=== PATIENT | female | born 1960 | race Caucasian/White ===

== ENCOUNTER 2019-08-24 10:46 | Outpatient (CLI) | payer OTHER, SELFPAY ==
--- NOTE | ~2019-08-24 | MM_ITS ---
EXAMINATION: MM scrn madonna implant BI w [facility] HISTORY: Screening mammogram TECHNIQUE: Craniocaudal and mediolateral oblique 3-D tomosynthesis images with implant displacement a nd synthetic 2-D images were generated. Craniocaudal and mediolateral oblique views of the breasts wi thout implant displacement were obtained using full field digital mammography. CAD analysis was submi tted and interpreted. COMPARISON: 08/12/2018, 05/30/2017, 05/22/2016 bilateral digital screening mammogram examinations BREAST PARENCHYMAL COMPOSITION: The breasts are heterogeneously dense, which may obscure small masses . FINDINGS: Status post bilateral augmentation mammoplasty. Minimal benign calcification of the breast. There is no evidence of suspicious mass, calcification, or architectural distortion to suggest malig john in either breast. There has been no suspicious interval change. IMPRESSION: 1. No mammographic evidence of malignancy. 2. Recommend routine screening mammography in one year. BI-RADS Category 2: Benign finding(s). Reviewed, dictated and finalized at location A. AL PARTS ASSEMBLER
== END 2019-08-24 10:47 | disposition home or self-care (01) ==
PROVIDERS: PCP Family Medicine; Visit Provider Nurse Practitioner Family
DX: Z12.31 Encounter for screening mammogram for malignant neoplasm of breast (principal)
CPT/HCPCS: 77063; 77067

== ENCOUNTER → 2019-09-13 12:00 | Outpatient (CLI) | payer OTHER, SELFPAY ==
--- NOTE | ~2019-09-13 | XR_ITS ---
EXAMINATION: XR knee RT min 4V DATE: 09/13/2019 12:13 INDICATION: Right knee pain. TECHNIQUE: 4 views of right knee were obtained. COMPARISON: None. FINDINGS: Bone alignment is normal. No fracture. There is mild osteoarthritis of medial and patellofe moral compartments characterized by tiny marginal osteophytes. There is a small knee joint effusion. IMPRESSION: 1. Mild right knee osteoarthritis. 2. Small right knee joint effusion. Reviewed, dictated and finalized at location A. L ADJUSTER
== END ==
PROVIDERS: PCP Family Medicine; Visit Provider Nurse Practitioner
DX: M25.461 Effusion, right knee (principal); M17.11 Unilateral primary osteoarthritis, right knee
CPT/HCPCS: 73564

== ENCOUNTER 2020-05-03 11:22 | Outpatient (CLI) | payer OTHER, SELFPAY ==
[2020-05-03 14:09] LABS: Thyroid Stimulating Hormone 0.143 uIU/mL (0.465-4.680)
[2020-05-03 14:17] LABS: Free T4 Free Thyroxine 1.24 ng/mL (0.78-2.19)
== END 2020-05-03 11:23 | disposition home or self-care (01) ==
DX: C73 Malignant neoplasm of thyroid gland (principal)
CPT/HCPCS: 36415; 84439; 84443

== ENCOUNTER 2020-08-31 10:41 | Outpatient (CLI) | payer OTHER, SELFPAY ==
[2020-08-31 11:30] LABS: Cholesterol 220 mg/dL (0-200); HDL Direct 62 mg/dL; Triglycerides 46 mg/dL (<150)
[2020-08-31 11:40] LABS: LDL Cholesterol Direct 123 mg/dL
== END 2020-08-31 10:42 | disposition home or self-care (01) ==
LOC: ANHLAB 10:42
PROVIDERS: PCP Family Medicine; Visit Provider Nurse Practitioner Family
DX: E78.5 Hyperlipidemia, unspecified (principal)
CPT/HCPCS: 36415; 80061

== ENCOUNTER 2020-09-22 09:53 | Outpatient (CLI) | payer OTHER, SELFPAY ==
--- NOTE | ~2020-09-22 | DEXA_ITS ---
Bone Density Report Name: Page Del Valle Age: 60 Sex: Female Ethnicity: White Date of : 1960 Indication: postmenopausal; height loss; cancer; Referring Provider: Terri Hopkins Study: Bone densitometry was performed. Exam Date: September 22, 2020 Accession number: [id number] Bone Density: Region BMD T-score Z-score Classification AP Spine (L1-L4) 1.197 1.4 2.7 Normal Femoral Neck (Left) 0.746 -0.9 0.3 Normal Total Hip (Left) 0.926 -0.1 0.8 Normal Total Hip Bilateral Avg 0.933 -0.1 0.8 Normal Femoral Neck (Right) 0.776 -0.7 0.6 Normal Total Hip (Right) 0.939 0.0 0.9 Normal World Health Organization criteria for BMD impression classify patients as: Normal (T-score at or above -1.0), Osteopenia (T-score between -1.0 and -2.5), or Osteoporosis (T-score at or below -2.5). 10-year Fracture Risk: FRAX not reported because: All T-scores for Spine Total, Hip Total, Femoral Neck at or above -1.0 Previous Exams: Region Exam Age BMD T-score BMD Change BMD Change Date g/cm2 vs Baseline vs Previous AP Spine(L1-L4) 09/22/2020 60 1.197 1.4 0.126(11.8%)* 0.060(5.3%)* 05/30/2017 57 1.137 0.8 0.066(6.1%)* 0.066(6.1%)* 02/21/2015 54 1.071 0.2 Total Hip(Left) 09/22/2020 60 0.926 -0.1 0.020(2.2%) -0.004(-0.4%) 05/30/2017 57 0.930 -0.1 0.024(2.6%) 0.024(2.6%) 02/21/2015 54 0.906 -0.3 Total Hip(Right) 09/22/2020 60 0.939 0.0 0.031(3.4%)* -0.006(-0.7%) 05/30/2017 57 0.945 0.0 0.037(4.1%)* 0.037(4.1%)* 02/21/2015 54 0.908 -0.3 *Denotes significance at 95% confidence level, LSC for AP Spine = 0.022 g/cm2, LSC for Total Hip = 0.027 g/cm2 Clinical Information Provided by Patient: Has used the following medications: Vitamin D Has the following medical conditions: Cancer Patient maximum height was 70 Menopause Age: 53 Onset of menses at age 17 Number of children 2 Impression: The patient has normal bone mass. No significant bone loss was observed. Discussion: BONE DENSITY IS ABOVE THE MINIMUM DESIRABLE LEVEL AT ALL SKELETAL SITES TESTED. This patient?s bone mineral density is above the minimum desirable level (T-score -1.0 or better) at all sites measured. The patient should follow a healthful lifestyle (good nutrition with adequate calcium and vitamin D, and appropriate weight-bearing exercise). Follow-Up: Consider repeating this study in 5 years or sooner if there is some new clinical indic
--- NOTE | ~2020-09-22 | MM_ITS ---
EXAMINATION: MM scrn madonna implant BI [facility] HISTORY: Screening mammogram TECHNIQUE: Craniocaudal and mediolateral oblique 3-D tomosynthesis images with implant displacement a nd synthetic 2-D images were generated. Craniocaudal and mediolateral oblique views of the breasts wi thout implant displacement were obtained using full field digital mammography. CAD analysis was submi tted and interpreted. COMPARISON: 08/24/2019, 08/12/2018, 05/30/2017 bilateral implant digital screening mammogram examinatio ns BREAST PARENCHYMAL COMPOSITION: The breasts are heterogeneously dense, which may obscure small masses . FINDINGS: Status post bilateral augmentation mammoplasty. There is no evidence of suspicious mass, ca lcification, or architectural distortion to suggest malignancy in either breast. There has been no aguirre spicious interval change. IMPRESSION: 1. No mammographic evidence of malignancy. 2. Recommend routine screening mammography in one year. BI-RADS Category 1: Negative Reviewed, dictated and finalized at location A. RY HELPER
== END 2020-09-22 09:54 | disposition home or self-care (01) ==
LOC: ANHIMG 09:55
PROVIDERS: PCP Family Medicine; Visit Provider Nurse Practitioner Family
DX: Z12.31 Encounter for screening mammogram for malignant neoplasm of breast (principal); Z78.0 Asymptomatic menopausal state
CPT/HCPCS: 77063; 77067; 77080

== ENCOUNTER 2021-01-04 09:48 | Outpatient (CLI) | payer OTHER, SELFPAY ==
[2021-01-04 10:56] LABS: Thyroid Stimulating Hormone 0.255 uIU/mL (0.465-4.680)
[2021-01-04 11:12] LABS: Free T4 Free Thyroxine 1.75 ng/mL (0.78-2.19)
== END 2021-01-04 09:49 | disposition home or self-care (01) ==
PROVIDERS: PCP Family Medicine
DX: C73 Malignant neoplasm of thyroid gland (principal)
CPT/HCPCS: 36415; 84439; 84443

== ENCOUNTER 2021-10-30 07:57 | Outpatient (CLI) | payer OTHER, SELFPAY ==
--- NOTE | ~2021-10-30 | MM_ITS ---
EXAMINATION: MM scrn madonna implant BI [facility] HISTORY: Screening mammogram TECHNIQUE: Craniocaudal and mediolateral oblique 3-D tomosynthesis images with implant displacement a nd synthetic 2-D images were generated. Craniocaudal and mediolateral oblique views of the breasts wi thout implant displacement were obtained using full field digital mammography. CAD analysis was submi tted and interpreted. COMPARISON: 09/22/2020, 08/24/2019, 08/12/2018 bilateral implant screening mammogram examinations BREAST PARENCHYMAL COMPOSITION: The breasts are heterogeneously dense, which may obscure small masses . FINDINGS: Status post bilateral augmentation mammoplasty. On MLO implant displaced Tomosynthesis image 37/60 there is suggestion of a rounded approximately 2 c m partially obscured mass in the mid and lower central breast. Diagnostic right mammogram and right b reast ultrasound examination are recommended. Otherwise there is no evidence of suspicious mass, calcification, or architectural distortion to sugg est malignancy in either breast. There has been no other suspicious interval change. IMPRESSION: 1. Possible 2 cm right breast mass 2. Diagnostic right mammogram and right breast ultrasound examination are recommended BI-RADS Category 0: Incomplete: Needs additional imaging evaluation. Reviewed, dictated and finalized at location A. IMPRESSION: 1. Possible 2 cm right breast mass 2. Diagnostic right mammogram and right breast ultrasound examination are recom mended BI-RADS Category 0: Incomplete: Needs additional imaging evaluation.
[2021-10-30 08:50] LABS: Basophils Percent Auto 0.4 % (0.2-1.2); Eosinophils Absolute Auto 0.1 K/mm3 (0-0.3); Hematocrit 44.6 % (37.0-47.0); Hemoglobin 14.6 g/dL (12.0-15.0); Immature Granulocyte Absolute 0.01 K/mm3 (0.00-0.031); Immature Granulocyte Percent A 0.2 % (0-0.5); Lymphocytes Absolute Auto 1.57 K/mm3 (0.9-3.2); Lymphocytes Percent Auto 30.8 % (18.3-44.2); Mean Corpuscular HGB Conc 32.7 g/dl (32-36); Mean Corpuscular Volume 91.8 fl (80-100); Mean Platelet Volume 10.6 fl (7.4-10.4); Monocytes Absolute Auto 0.5 K/mm3 (0.1-0.6); Monocytes Percent Auto 8.8 % (2.6-8.5); Neutrophils Percent Auto 58.8 % (45.5-73.1); Platelet Count Result 164 k/mm3 (150-375); Red Blood Count 4.86 M/mm3 (4.2-5.4); Red Cell Distribution Width 12.5 % (11.5-14.5); White Blood Count 5.1 K/mm3 (4.5-10.0)
[2021-10-30 09:03] LABS: Alanine Aminotransferase 19 U/L (4-35); Albumin Level 4.3 g/dL (3.5-5.1); Alkaline Phosphatase 65 U/L (38-126); Anion Gap 4 mmol/L (8-16); Aspartate Amino Transferase 24 U/L (14-36); Bilirubin,Total 1.1 mg/dL (0.2-1.3); Blood Urea Nitrogen 19 mg/dL (7-17); Carbon Dioxide 29 mmol/L (22-30); Chloride 102 mmol/L (98-107); Cholesterol 256 mg/dL (0-200); Estimated Glomerular Filt Rate > 60; Glucose 113 mg/dL (65-110); HDL Direct 58 mg/dL; Potassium 3.9 mmol/L (3.4-5.0); Sodium 135 mmol/L (137-145); Triglycerides 76 mg/dL (<150)
[2021-10-30 09:15] LABS: LDL Cholesterol Direct 140 mg/dL
[2021-10-30 09:34] LABS: Thyroid Stimulating Hormone 0.321 uIU/mL (0.465-4.680)
[2021-10-30 09:52] LABS: Free T4 Free Thyroxine 1.59 ng/mL (0.78-2.19)
== END 2021-10-30 07:58 | disposition home or self-care (01) ==
PROVIDERS: PCP Family Medicine; Visit Provider Nurse Practitioner Family
DX: Z12.31 Encounter for screening mammogram for malignant neoplasm of breast (principal); R92.8 Other abnormal and inconclusive findings on diagnostic imaging of breast; Z13.220 Encounter for screening for lipoid disorders; Z79.899 Other long term (current) drug therapy; E03.9 Hypothyroidism, unspecified
CPT/HCPCS: 36415; 77063; 77067; 80053; 80061; 84439; 84443; 85025

== ENCOUNTER 2021-11-29 11:07 | Outpatient (CLI) | payer OTHER, SELFPAY ==
--- NOTE | ~2021-11-29 | MMUS_ITS ---
EXAMINATION: MM diag madonna implant RT w [facility], US breast RT limited HISTORY: Possible right breast mass on screening mammogram TECHNIQUE: Craniocaudal, mediolateral, and mediolateral oblique 3-D tomosynthesis images with implant displacement of the right breast were performed and synthetic 2-D images were generated. Mediolater al view of the right breast without implant displacement was obtained using full field digital mammog conchita. CAD analysis was submitted and interpreted. High resolution limited right breast ultrasound wa s performed. COMPARISON: 10/30/2021, 09/22/2020, 08/24/2019, 08/12/2018 BREAST PARENCHYMAL COMPOSITION: The breasts are heterogeneously dense, which may obscure small masses . FINDINGS: MAMMOGRAPHIC FINDINGS: There is a return to baseline fibroglandular appearance with spot compression of the right breast in the area questioned on screening mammogram. ULTRASOUND: There is no evidence of focal abnormal solid or cystic lesion in the vicinity of the mammographic fin ding in question. IMPRESSION: 1. No mammographic or sonographic evidence of malignancy. 2. Recommend routine screening mammography in one year. BI-RADS Category 1: Negative Reviewed, dictated and finalized at location A. IMPRESSION: 1. No mammographic or sonographic evidence of malignancy. 2. Recommend routine screening mammography in one year. BI-RADS Category 1: Negative
== END 2021-11-29 11:08 | disposition home or self-care (01) ==
LOC: ANHIMG 11:09
PROVIDERS: PCP Family Medicine; Visit Provider Nurse Practitioner Family
DX: N63.10 Unspecified lump in the right breast, unspecified quadrant (principal); R92.8 Other abnormal and inconclusive findings on diagnostic imaging of breast
CPT/HCPCS: 76642; 77061; 77065; G0279

== ENCOUNTER 2022-04-18 10:15 | Outpatient (CLI) | payer OTHER, SELFPAY ==
[2022-04-18 10:36] LABS: Basophils Percent Auto 0.3 % (0.2-1.2); Eosinophils Percent Auto 0.5 % (0-4.4); Hematocrit 46.1 % (37.0-47.0); Hemoglobin 15.3 g/dL (12.0-15.0); Immature Granulocyte Absolute 0.01 K/mm3 (0.00-0.031); Immature Granulocyte Percent A 0.2 % (0-0.5); Lymphocytes Absolute Auto 1.21 K/mm3 (0.9-3.2); Lymphocytes Percent Auto 20.3 % (18.3-44.2); Mean Corpuscular HGB Conc 33.2 g/dl (32-36); Mean Corpuscular Hemoglobin 30.7 pg (26-34); Mean Corpuscular Volume 92.4 fl (80-100); Mean Platelet Volume 10.6 fl (7.4-10.4); Monocytes Absolute Auto 0.4 K/mm3 (0.1-0.6); Monocytes Percent Auto 6.5 % (2.6-8.5); Neutrophils Absolute Auto 4.3 K/mm3 (1.3-6.7); Neutrophils Percent Auto 72.2 % (45.5-73.1); Platelet Count Result 188 k/mm3 (150-375); Red Blood Count 4.99 M/mm3 (4.2-5.4); Red Cell Distribution Width 12.8 % (11.5-14.5)
[2022-04-18 11:00] LABS: Alanine Aminotransferase 23 U/L (6-35); Albumin Level 4.5 g/dL (3.5-5.1); Alkaline Phosphatase 68 U/L (38-126); Anion Gap 10 mmol/L (8-16); Aspartate Amino Transferase 24 U/L (14-36); Bilirubin,Total 1.2 mg/dL (0.2-1.3); Blood Urea Nitrogen 17 mg/dL (7-17); Calcium 9.3 mg/dL (8.4-10.2); Carbon Dioxide 28 mmol/L (22-30); Chloride 100 mmol/L (98-107); Cholesterol 261 mg/dL (0-200); Estimated Glomerular Filt Rate > 60; Glucose 103 mg/dL (65-110); HDL Direct 66 mg/dL; Potassium 3.8 mmol/L (3.4-5.0); Sodium 138 mmol/L (137-145); Triglycerides 60 mg/dL (<150)
[2022-04-18 11:11] LABS: LDL Cholesterol Direct 137 mg/dL
[2022-04-18 11:29] LABS: Thyroid Stimulating Hormone < 0.015 uIU/mL (0.465-4.680)
[2022-04-18 12:05] LABS: Free T4 Free Thyroxine 1.94 ng/mL (0.78-2.19)
[2022-04-18 13:00] LABS: Hemoglobin A1C 5.7 % (<5.7)
== END 2022-04-18 10:16 | disposition home or self-care (01) ==
LOC: ANHLAB 10:19
PROVIDERS: PCP Family Medicine; Visit Provider Nurse Practitioner Family
DX: E78.5 Hyperlipidemia, unspecified (principal); E03.9 Hypothyroidism, unspecified; R73.01 Impaired fasting glucose
CPT/HCPCS: 36415; 80053; 80061; 83036; 84439; 84443; 85025

== ENCOUNTER 2022-06-05 10:03 | Outpatient (CLI) | payer OTHER, SELFPAY ==
--- NOTE | ~2022-06-05 | US_ITS ---
EXAMINATION: US thyroid DATE: 06/05/2022 11:09 INDICATION: History of malignant neoplasm of the thyroid. Status post thyroidectomy. TECHNIQUE: Multiple ultrasound images of the thyroid were obtained. COMPARISON: 07/11/2017. FINDINGS: No discrete thyroid tissue detected. No solid or cystic mass. No lymphadenopathy. IMPRESSION: No sonographic evidence of residual thyroid tissue mass, or lymphadenopathy. Reviewed, dictated and finalized at location K. CE RENTAL CLERK
[2022-06-05 10:51] LABS: Alanine Aminotransferase 20 U/L (6-35); Albumin Level 4.6 g/dL (3.5-5.1); Alkaline Phosphatase 72 U/L (38-126); Anion Gap 9 mmol/L (8-16); Aspartate Amino Transferase 21 U/L (14-36); Bilirubin,Total 1.2 mg/dL (0.2-1.3); Blood Urea Nitrogen 13 mg/dL (7-17); Calcium 9.2 mg/dL (8.4-10.2); Carbon Dioxide 26 mmol/L (22-30); Chloride 104 mmol/L (98-107); Estimated Glomerular Filt Rate > 60; Glucose 107 mg/dL (65-110); Potassium 4.2 mmol/L (3.4-5.0); Sodium 139 mmol/L (137-145)
[2022-06-05 11:07] LABS: Free T4 Free Thyroxine 1.85 ng/mL (0.78-2.19)
[2022-06-05 11:22] LABS: Thyroid Stimulating Hormone < 0.015 uIU/mL (0.465-4.680)
[2022-06-05 11:58] LABS: Folic Acid 11.5 ng/mL (2.76->20)
[2022-06-09 04:53] LABS: Triiodothyronine T3 Free 3.6 pg/mL (2.3-4.2)
[2022-06-10 03:43] LABS: Thyroglobulin 0.4 ng/mL (2.8-40.9); Thyroglobulin Antibodies <1 IU/mL (<=1)
== END 2022-06-05 10:04 | disposition home or self-care (01) ==
PROVIDERS: PCP Family Medicine; Visit Provider Internal Medicine Endocrinology, Diabetes & Metabolism
DX: C73 Malignant neoplasm of thyroid gland (principal); E89.0 Postprocedural hypothyroidism
CPT/HCPCS: 36415; 76536; 80053; 82607; 82746; 84432; 84439; 84443; 84481; 86800

== ENCOUNTER 2022-11-26 10:00 | Outpatient (RCR) | payer OTHER, SELFPAY ==
--- NOTE | 2022-10-25 14:20 | PTOPEVAL1 ---
Assessment and note entered by Belia Quach, PT, DPT Evaluation Information Assessment Status Evaluation Diagnosis neck and upper back pain Onset chronic Subjective Information Pt states she is really active. She states over the last few years she has noticed her neck and shoulders are starting to round forward and she has pain in her upper neck and shoulders. She also reports mild chronic low back pain after prolonged positioning. She has seen a chiropractor once a month for maintenance for most of her life. Reported Pain Level Pain Score 2: Self Report Assessment PT Clinical Summary Page presents to therapy today for her initial evaluation with a diagnosis of a muscle strain. Today she demonstrates minor decreases in cervical ROM in all directions. She demonstrates postural deviations with her sitting and standing posture, both with increased thoracic kyphosis with a strong forward head posture. 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 Skilled physical therapy services are indicated to improve pain, postural awareness, and body mechanics, and to promote unlimited mobility. Plan of Care Interventions Electrical Stimulation,Hot Pack/Cold Pack,Manual Therapy,Neuro Re-education,Patient/Caregiver Educati,Therapeutic Activities,Therapeutic Exercise PT Services Indicated Yes Treatment Frequency and 1x/wk for 5 wks Duration These treatments will address the objective and functional deficits as defined above. The patient will be advanced safely and appropriately in order for the patient to progress towards his/her prior level of function. Additional exercises will be introduced and as well as a comprehensive home exercise program upon discharge, if needed, ?to ensure carryover of functional gains achieved in the clinic. This treatment plan has been reviewed and agreement upon by the patient.
--- NOTE | 2022-11-26 10:55 | PTOPDC ---
Assessment and note entered by Belia Quach, PT, DPT Evaluation Information Assessment Status discharged Diagnosis neck and upper back pain Onset chronic Subjective Information Pt states things are going okay . She states some days are better than others. She states her pain is less when she does her workout videos less. Pt states her pain is the same intensity when she stressed her neck, she states she has been trying to avoid stressing positions. Pt reports ~50% improvement in overall symptoms. Reported Pain Level Pain Score 0,3: Self Report Assessment PT Clinical Summary Page presents to therapy today for her progress report following 5 visits of skilled therapy to treat her neck pain. She demonstrates improved posture and body awareness during exercise. She demonstrates improved active cervical ROM in all directions. She reports good compliance with her HEP and is progressing well towards her therapy goals. Her HEP was progressed and she plans to complete these on her own. She will be discharged from skilled therapy services at this time.
== END 2022-11-26 14:33 | disposition home or self-care (01) ==
LOC: ANHGOSHPT 10:00
PROVIDERS: PCP Family Medicine; Visit Provider Nurse Practitioner Family
DX: S46.919D Strain of unspecified muscle, fascia and tendon at shoulder and upper arm level, unspecified arm, subsequent encounter (principal)
CPT/HCPCS: 97110; 97112; 97140; 97161

== ENCOUNTER 2022-12-24 10:53 | Outpatient (CLI) | payer OTHER, SELFPAY ==
--- NOTE | ~2022-12-24 | MM_ITS ---
EXAMINATION: MM scrn madonna implant BI [facility] HISTORY: Screening mammogram TECHNIQUE: Craniocaudal and mediolateral oblique 3-D tomosynthesis images with implant displacement a nd synthetic 2-D images were generated. Craniocaudal and mediolateral oblique views of the breasts wi thout implant displacement were obtained using full field digital mammography. CAD analysis was submi tted and interpreted. COMPARISON: 11/29/2021 diagnostic right implant mammogram and limited right breast ultrasound examinat ion 10/30/2021, 09/22/2020, 08/24/2019 bilateral implant screening mammogram examinations BREAST PARENCHYMAL COMPOSITION: The breasts are extremely dense, which lowers the sensitivity of mamm ography. FINDINGS: Status post bilateral augmentation mammoplasty. There is no evidence of suspicious mass, ca lcification, or architectural distortion to suggest malignancy in either breast. There has been no aguirre spicious interval change. IMPRESSION: 1. No mammographic evidence of malignancy. 2. Recommend routine screening mammography in one year. BI-RADS Category 1: Negative Reviewed, dictated and finalized at location A.
--- NOTE | ~2022-12-24 | DEXA_ITS ---
Bone Density Report Name: KENZIE RAWLS Age: 62 Sex: Female Ethnicity: White Date of : 1960 Indication: postmenopausal; screening for osteoporosis; height loss; cancer; Referring Provider: ADAN LAINEZ Study: Bone densitometry was performed. Exam Date: December 24, 2022 Accession number: [id number] Bone Density: Region BMD T-score Z-score Classification AP Spine(L1-L4) 1.166 1.1 2.6 Normal Femoral Neck (Left) 0.739 -1.0 0.4 Normal Total Hip (Left) 0.934 -0.1 1.0 Normal Femoral Neck (Right) 0.786 -0.6 0.8 Normal Total Hip (Right) 0.924 -0.1 0.9 Normal Total Hip Mean 0.929 -0.1 1.0 Normal World Health Organization criteria for BMD impression classify patients as: Normal (T-score at or above -1.0), Osteopenia (T-score between -1.0 and -2.5), or Osteoporosis (T-score at or below -2.5). 10-year Fracture Risk: FRAX not reported because: All T-scores for Spine Total, Hip Total, Femoral Neck at or above -1.0 Previous Exams: Region Exam Age BMD T-score BMD Change BMD Change Date g/cm2 vs Baseline vs Previous AP Spine (L1-L4) 12/24/2022 62 1.166 1.1 0.095 (8.9%)* -0.031 (-2.6%) 09/22/2020 60 1.197 1.4 0.126 (11.8%)* 0.060 (5.3%)* 05/30/2017 57 1.137 0.8 0.066 (6.1%)* 0.066 (6.1%)* 02/21/2015 54 1.071 0.2 Total Hip(Left) 12/24/2022 62 0.934 -0.1 0.028 (3.1%)* 0.008 (0.9%) 09/22/2020 60 0.926 -0.1 0.020 (2.2%) -0.004 (-0.4%) 05/30/2017 57 0.930 -0.1 0.024 (2.6%) 0.024 (2.6%) 02/21/2015 54 0.906 -0.3 Total Hip(Right) 12/24/2022 62 0.924 -0.1 0.016 (1.8%) -0.015 (-1.6%) 09/22/2020 60 0.939 0.0 0.031 (3.4%)* -0.006 (-0.7%) 05/30/2017 57 0.945 0.0 0.037 (4.1%)* 0.037 (4.1%)* 02/21/2015 54 0.908 -0.3 *Denotes significance at 95% confidence level, LSC for AP Spine = 0.022 g/cm2, LSC for Total Hip = 0.027 g/cm2 Clinical Information Provided by Patient: Has used the following medications: Vitamin D, Calcium Has the following medical conditions: Cancer Patient maximum height was 70 Menopause Age: 53 Onset of menses at age 17 Number of children 2 Impression: The patient has normal bone mass. The BMD for the AP Spine (L1-L4) decreased, changing by -2.6% since the last DXA exam. Discussion: BONE DENSITY IS ABOVE THE MINIMUM DESIRABLE LEVEL AT ALL SKELETAL SITES TESTED. This patient?s bone mineral density is above the minimum desirable l
[2022-12-24 12:01] LABS: Basophils Percent Auto 0.4 % (0.2-1.2); Eosinophils Absolute Auto 0.1 K/mm3 (0-0.3); Hematocrit 46.5 % (37.0-47.0); Hemoglobin 15.5 g/dL (12.0-15.0); Immature Granulocyte Absolute 0.01 K/mm3 (0.00-0.031); Immature Granulocyte Percent A 0.2 % (0-0.5); Lymphocytes Absolute Auto 1.35 K/mm3 (0.9-3.2); Lymphocytes Percent Auto 27.2 % (18.3-44.2); Mean Corpuscular HGB Conc 33.3 g/dl (32-36); Mean Corpuscular Hemoglobin 30.2 pg (26-34); Mean Corpuscular Volume 90.6 fl (80-100); Mean Platelet Volume 10.4 fl (7.4-10.4); Monocytes Absolute Auto 0.4 K/mm3 (0.1-0.6); Monocytes Percent Auto 7.2 % (2.6-8.5); Neutrophils Absolute Auto 3.2 K/mm3 (1.3-6.7); Platelet Count Result 206 k/mm3 (150-375); Red Blood Count 5.13 M/mm3 (4.2-5.4); Red Cell Distribution Width 12.3 % (11.5-14.5)
[2022-12-24 12:13] LABS: Alanine Aminotransferase 26 U/L (6-35); Albumin Level 4.7 g/dL (3.5-5.1); Alkaline Phosphatase 71 U/L (38-126); Anion Gap 7 mmol/L (8-16); Aspartate Amino Transferase 23 U/L (14-36); Bilirubin,Total 1.2 mg/dL (0.2-1.3); Blood Urea Nitrogen 17 mg/dL (7-17); Calcium 9.2 mg/dL (8.4-10.2); Carbon Dioxide 30 mmol/L (22-30); Chloride 101 mmol/L (98-107); Cholesterol 234 mg/dL (0-200); Estimated Glomerular Filt Rate > 60; Glucose 102 mg/dL (65-110); HDL Direct 69 mg/dL; Sodium 138 mmol/L (137-145); Triglycerides 75 mg/dL (<150)
[2022-12-24 12:26] LABS: LDL Cholesterol Direct 132 mg/dL
[2022-12-24 12:31] LABS: Vitamin D 25 Hydroxy 66.7 ng/mL
[2022-12-24 12:42] LABS: Thyroid Stimulating Hormone < 0.015 uIU/mL (0.465-4.680)
== END 2022-12-24 10:54 | disposition home or self-care (01) ==
PROVIDERS: PCP Family Medicine; Referring Provider Internal Medicine Endocrinology, Diabetes & Metabolism; Visit Provider Nurse Practitioner Family
DX: Z12.31 Encounter for screening mammogram for malignant neoplasm of breast (principal); Z78.0 Asymptomatic menopausal state; E78.5 Hyperlipidemia, unspecified; E55.9 Vitamin D deficiency, unspecified; E89.0 Postprocedural hypothyroidism; E21.0 Primary hyperparathyroidism
CPT/HCPCS: 36415; 77063; 77067; 77080; 80053; 80061; 82306; 84443; 85025

== ENCOUNTER 2023-10-01 11:55 | Outpatient (CLI) | payer OTHER, SELFPAY ==
--- NOTE | ~2023-10-01 | XR_ITS ---
XR sinus min 3V DATE: 10/01/2023 12:06 INDICATION: Shortness of breath, congestion TECHNIQUE: yumiko Kinney, lateral, submental vertical views COMPARISON: None FINDINGS: The paranasal sinuses and mastoid air cells are normally developed and aerated. The adenoids are unremarkable. No prevertebral soft tissue swelling. Normal epiglottis. IMPRESSION: No significant abnormality of the paranasal sinuses Reviewed, dictated and finalized at location B.
--- NOTE | ~2023-10-01 | XR_ITS ---
Clinical Indication: Shortness of breath PA and lateral views of the chest: Comparison: None Findings: The lungs are clear, without evidence of focal consolidation or pleural effusion. Cardiome diastinal silhouette is within normal limits. Bones and soft tissues are unremarkable. Impression: Normal chest. Reviewed, dictated and finalized at [facility]. Impression: Normal chest.
== END 2023-10-01 11:56 ==
PROVIDERS: PCP Family Medicine; Visit Provider Nurse Practitioner Family
DX: R06.02 Shortness of breath (principal); R09.82 Postnasal drip
CPT/HCPCS: 70220; 71046

== ENCOUNTER 2023-10-15 10:40 | Outpatient (CLI) | payer OTHER, SELFPAY ==
[2023-10-15 11:48] LABS: Basophils Percent Auto 0.4 % (0.2-1.2); Eosinophils Absolute Auto 0.1 K/mm3 (0-0.3); Eosinophils Percent Auto 1.3 % (0-4.4); Hematocrit 45.9 % (37.0-47.0); Hemoglobin 14.9 g/dL (12.0-15.0); Immature Granulocyte Absolute 0.02 K/mm3 (0.00-0.031); Immature Granulocyte Percent A 0.4 % (0-0.5); Lymphocytes Absolute Auto 1.38 K/mm3 (0.9-3.2); Lymphocytes Percent Auto 29.4 % (18.3-44.2); Mean Corpuscular HGB Conc 32.5 g/dl (32-36); Mean Corpuscular Hemoglobin 29.8 pg (26-34); Mean Corpuscular Volume 91.8 fl (80-100); Mean Platelet Volume 11.4 fl (7.4-10.4); Monocytes Absolute Auto 0.4 K/mm3 (0.1-0.6); Monocytes Percent Auto 8.9 % (2.6-8.5); Neutrophils Absolute Auto 2.8 K/mm3 (1.3-6.7); Neutrophils Percent Auto 59.6 % (45.5-73.1); Platelet Count Result 200 k/mm3 (150-375); White Blood Count 4.7 K/mm3 (4.5-10.0)
[2023-10-15 11:59] LABS: Alanine Aminotransferase 21 U/L (6-35); Albumin Level 4.5 g/dL (3.5-5.1); Alkaline Phosphatase 74 U/L (38-126); Anion Gap 3 mmol/L (4-12); Aspartate Amino Transferase 23 U/L (14-36); Bilirubin,Total 1.2 mg/dL (0.2-1.3); Blood Urea Nitrogen 14 mg/dL (7-17); Calcium 9.5 mg/dL (8.4-10.2); Carbon Dioxide 33 mmol/L (22-30); Chloride 101 mmol/L (98-107); Cholesterol 239 mg/dL (0-200); Estimated Glomerular Filt Rate > 60; Glucose 93 mg/dL (65-110); HDL Direct 59 mg/dL; Potassium 3.9 mmol/L (3.4-5.0); Sodium 137 mmol/L (137-145); Triglycerides 68 mg/dL (<150)
[2023-10-15 12:10] LABS: LDL Cholesterol Direct 144 mg/dL
[2023-10-15 12:21] LABS: Free T4 Free Thyroxine 2.34 ng/mL (0.78-2.19)
[2023-10-15 12:26] LABS: Thyroid Stimulating Hormone < 0.015 uIU/mL (0.465-4.680)
[2023-10-18 09:16] LABS: Triiodothyronine T3 Free 4.3 pg/mL (2.3-4.2)
[2023-10-18 10:15] LABS: Vitamin D 1,25 (OH)2 Total 27 pg/mL (18-72); Vitamin D2 1,25 (OH)2 <8 pg/mL; Vitamin D3 1,25 (OH)2 27 pg/mL
== END 2023-10-15 10:41 | disposition home or self-care (01) ==
LOC: ANHLAB 10:42
PROVIDERS: PCP Family Medicine; Visit Provider Nurse Practitioner Family
DX: E78.5 Hyperlipidemia, unspecified (principal); I10 Essential (primary) hypertension; E03.9 Hypothyroidism, unspecified; E55.9 Vitamin D deficiency, unspecified; Z00.00 Encounter for general adult medical examination without abnormal findings
CPT/HCPCS: 36415; 80053; 80061; 82607; 82652; 84439; 84443; 84481; 85025

== ENCOUNTER 2023-10-28 09:49 | Outpatient (CLI) | payer OTHER, SELFPAY ==
--- NOTE | ~2023-10-28 | US_ITS ---
Ultrasound of the Abdominal Aorta INDICATION: Family history ischemic heart disease TECHNIQUE: Grayscale, color Doppler, and pulsed Doppler images of the aorta and common iliac arteries were obtained. COMPARISON: None. FINDINGS: Maximum vascular dimensions are as follows: Proximal aorta: 2.3 cm Mid aorta: 2.0 cm Distal aorta: 2.1 cm Right common iliac artery: 1.5 cm Left common iliac artery: 1.7 cm There is no evidence of abdominal aortic aneurysm. IMPRESSION: No abdominal aortic aneurysm. Reviewed, dictated and finalized at location M.
== END 2023-10-28 09:50 ==
PROVIDERS: PCP Family Medicine; Visit Provider Family Medicine
DX: Z13.6 Encounter for screening for cardiovascular disorders (principal); Z82.49 Family history of ischemic heart disease and other diseases of the circulatory system
CPT/HCPCS: 76775

== ENCOUNTER 2024-05-06 14:44 | Outpatient (CLI) | payer OTHER, SELFPAY ==
--- NOTE | ~2024-05-06 | MM_ITS ---
EXAMINATION: MM scrn madonna implant BI [facility] HISTORY: Screening mammogram TECHNIQUE: Craniocaudal and mediolateral oblique 3-D tomosynthesis images with implant displacement a nd synthetic 2-D images were generated. Craniocaudal and mediolateral oblique views of the breasts wi thout implant displacement were obtained using full field digital mammography. CAD analysis was submi tted and interpreted. COMPARISON: Comparison to multiple prior studies sequentially, with oldest reviewed study dated 08/12. BREAST PARENCHYMAL COMPOSITION: Dense: The breasts are heterogeneously dense, which may obscure small masses FINDINGS: There is no evidence of suspicious mass, calcification, or architectural distortion to sugg est malignancy in either breast. There has been no suspicious interval change. IMPRESSION: 1. No mammographic evidence of malignancy. 2. Recommend routine screening mammography in one year. BI-RADS Category 1: Negative Reviewed, dictated and finalized at location B.
== END 2024-05-06 14:45 | disposition home or self-care (01) ==
LOC: ANHIMG 14:45
PROVIDERS: PCP Family Medicine; Visit Provider Nurse Practitioner Family
DX: Z12.31 Encounter for screening mammogram for malignant neoplasm of breast (principal)
CPT/HCPCS: 77063; 77067

== ENCOUNTER 2024-11-12 10:48 | Outpatient (CLI) | payer OTHER, SELFPAY ==
[2024-11-12 11:15] LABS: Basophils Percent Auto 0.5 % (0.2-1.2); Eosinophils Percent Auto 0.5 % (0-4.4); Hematocrit 42.7 % (37.0-47.0); Hemoglobin 13.9 g/dL (12.0-15.0); Immature Granulocyte Absolute 0.02 K/mm3 (0.00-0.031); Immature Granulocyte Percent A 0.3 % (0-0.5); Lymphocytes Absolute Auto 1.67 K/mm3 (0.9-3.2); Lymphocytes Percent Auto 26.7 % (18.3-44.2); Mean Corpuscular HGB Conc 32.6 g/dl (32-36); Mean Corpuscular Hemoglobin 29.3 pg (26-34); Mean Corpuscular Volume 89.9 fl (80-100); Mean Platelet Volume 10.1 fl (7.4-10.4); Monocytes Absolute Auto 0.5 K/mm3 (0.1-0.6); Monocytes Percent Auto 7.2 % (2.6-8.5); Neutrophils Absolute Auto 4.1 K/mm3 (1.3-6.7); Neutrophils Percent Auto 64.8 % (45.5-73.1); Platelet Count Result 257 k/mm3 (150-375); Red Blood Count 4.75 M/mm3 (4.2-5.4); Red Cell Distribution Width 12.2 % (11.5-14.5); White Blood Count 6.3 K/mm3 (4.5-10.0)
[2024-11-12 12:01] LABS: Free T4 Free Thyroxine 2.18 ng/dL (0.78-2.19); Vitamin D 25 Hydroxy 47.5 ng/mL
[2024-11-12 12:14] LABS: Alanine Aminotransferase 20 U/L (6-35); Albumin Level 4.3 g/dL (3.5-5.1); Alkaline Phosphatase 85 U/L (38-126); Anion Gap 5 mmol/L (4-12); Aspartate Amino Transferase 24 U/L (14-36); Bilirubin,Total 0.8 mg/dL (0.2-1.3); Blood Urea Nitrogen 15 mg/dL (7-17); Calcium 9.2 mg/dL (8.4-10.2); Carbon Dioxide 29 mmol/L (22-30); Chloride 104 mmol/L (98-107); Cholesterol 261 mg/dL (0-200); Estimated Glomerular Filt Rate > 60; Glucose 101 mg/dL (65-110); HDL Direct 57 mg/dL; Potassium 4.3 mmol/L (3.4-5.0); Sodium 138 mmol/L (137-145); Triglycerides 57 mg/dL (<150)
[2024-11-12 12:24] LABS: Hemoglobin A1C 5.7 % (<5.7)
[2024-11-12 12:25] LABS: LDL Cholesterol Direct 153 mg/dL
[2024-11-12 12:48] LABS: Thyroid Stimulating Hormone < 0.015 uIU/mL (0.465-4.680); Total Triiodothyronine (T3) 1.27 NG/ML (0.97-1.69)
--- OUTSIDE RECORDS SUMMARY | 2024-11-13 12:06 | XMS_ITS | Clinical Summary ---
Author Organization [facility] Address [address] [place] [address] Care Team Providers Care Cell Installer Name Role Phone Carmen Guy NP Unavailable Severiano Anderson MD Unavailable Jaylyn Wadr VENEER PATCHER Primary Care Provider [phone] Allergies Active Allergy Reactions Criticality Noted Date Comments Animal Dander Other (See comments) Low 04/21/2012 Was tested for it - but patient states has cats at home with no symptoms / pt states has been getting more seasonal allergies instead No Known Allergies Other (See comments) Low Reaction: Medications zolpidem (AMBIEN) 10 mg tabletIndicatio ns:Sleep-Onset Insomnia Take 1 tablet (10 mg total) by mouth nightly 1 8 Active ibuprofen (ADVIL LIQUI-GEL) 200 mg tab/cap Active multivitamin tabletIndicatio ns:Vitamin Deficiency Prevention Active fluconazole (DIFLUCAN) 150 mg tablet 8 Active lansoprazole (PREVACID) 15 mg capsule Take 1 capsule (15 mg total) by mouth daily. 30 capsule 11 8 Active Additional Information Patient not taking.Reported on 03/31/2023 omega-3 fatty acids (LOVAZA) 1 gram capsule Take 2 capsules (2 g total) by mouth Active glucosamine-cho ndroitin (glucosamine-ch ondroitin) 500-400 mg capsule Take 1 capsule by mouth Active acetaminophen (TYLENOL) 500 mg tablet Take by mouth Active cholecalciferol (cholecalcifero l) 400 unit capsule Active amoxicillin-cla vulanate (AUGMENTIN) 875-125 mg per tablet 0 9 Active loratadine (CLARITIN) 10 mg tablet 0 9 Active predniSONE (DELTASONE) 20 mg tablet 0 9 Active ALPRAZolam (XANAX) 0.25 mg tablet Take 1 tablet (0.25 mg total) by mouth as needed for anxiety Active fluticasone propionate (FLONASE) 50 mcg/actuation nasal spray Administer 1 spray into each nostril daily Active tetrahydrozolin e HCl/zinc sulf (EYE DROPS ALLERGY RELIEF OPHT) Administer into affected eye(s) daily Active SENNOSIDES ORAL Take by mouth daily Active vitamin E 400 unit capsule Take 1 capsule (400 Units total) by mouth daily Active ascorbic acid (ascorbic acid with yury hips) 500 mg tablet,chewable daily Acti ve cyanocobalamin (Vitamin B-12) 1,000 mcg tabletIndicatio ns:Prevention of Vitamin B12 Deficiency Take 1 tablet (1,000 mcg total) by mouth daily Active levothyroxine (SYNTHROID) 125 mcg tabletIndicatio ns:Thyroid cancer (HCC) Take 1 tablet (125 mcg total) by mouth vibration technician before breakfast 90 tablet 3 4 12/30/19 25 Active Active Problems Problem Noted Date Diagnosed Date Lung nodule 11/04/2023 Assessment & Plan (11/04/2023 8:37 PM CDT): Discussed options to follow up with CT chest in 6 months If concern for papillary thyroid cancer mets , will scheduled WBS for evaluation pending biochemical testing Patient agrees Post-surgical hypothyroidism 03/31/2023 Assessment & Plan (05/24/2024 1:27 PM EDITORIAL DIRECTOR): Continue current levothyroxine dose. Will check thyroid function test and adjust levothyroxine dose accordingly. TSH goal suppressed as tolerated Assessment & Plan (11/04/2023 8:28 PM CDT): Continue current levothyroxine dose. Will check thyroid function test and adjust levothyroxine dose accordingly. TSH goal suppressed as tolerated Assessment & Plan (03/31/2023 3:43 PM CDT): Continue current levothyroxine dose. Will check thyroid function test and adjust levothyroxine dose accordingly. TSH goal suppressed as tolerated pending follow up Thyroid cancer 12/19/2017 Cancer Staging:Pathologic stage from 12/03/2017: pT1a, pN1a, Age at diagnosis: >= 55 years - Signed by Gage Arita MD on 12/19/2017 Papillary thyroid carcinoma 12/03/2017 Assessment & Plan (05/24/2024 1:28 PM EDITORIAL DIRECTOR): Thyroid function test with a TSH goal suppressed as tolerated Biochemical evaluation with thyroid tumor markers. Follow up neck ultrasound LILY Follow up CT chest unremarkable and less concern for metastasis Assessment & Plan (11/04/2023 8:29 PM CDT): Thyroid function test with a TSH goal suppressed as tolerated Biochemical evaluation with thyroid tumor markers. Follow up neck ultrasound fin [address] chest given previous mediastinal uptake on TBS and small lung nodule follow up If above are in acceptable range, will plan follow-up on yearly basis, if concern for disease ---> obtain TBS here Assessment & Plan (03/31/2023 3:42 PM CDT): Will plan follow-up with thyroid function test with a TSH goal suppressed as tolerated Biochemical evaluation with thyroid tumor markers. We will also obtain neck ultrasound for evaluation of the neck. Obtain CT chest given previous mediastinal uptake on TBS If above are in acceptable range, will plan follow-up on yearly basis Thyroid nodule 08/26/2017 Hyperparathyroidism 08/25/2017 Other screening mammogram 09/04/2012 Chronic insomnia 04/21/2012 Plantar fasciitis 04/21/2012 Overview (11/09/2018): Overview: right arch/ foot Screening for cervical cancer 04/21/2012 Overview (11/09/2018): Overview: 04/2011 PAP was ascus with positive HPV Had Colpo 06/2011 = mild squamous dysplasia (LYLY 1) Screening for osteoporosis 04/21/2012 Overview (11/09/2018): Overview: 10/05/12 BMD = normal Stress at home 04/21/2012 Overview (11/09/2018): Overview: out of town for work a lot, Teenage son is challenging Surgical History Surgery Date Site/Laterality Comments SD UNLISTED PROCEDURE BREAST Breast Surgery - (Added by TW Conv) THYROID SURGERY 12/03/2017 Medical History Medical History Date Comments Allergy status to unspecifie d drugs, medicaments and biological substances status History of seasonal allergie s - (Added by TW Conv) Family History Medical History Relation Name Comments Heart disease Brother Breast cancer Maternal Grandmother Breast cancer Mother Family history of malignant neoplasm of breast - (Added by TW Conv) Heart disease Mother Family history of cardiac disorder - (Added by TW Conv) Relation Name Status Comments Brother Maternal Grandmother Mother Social History Tobacco Use Types Packs/Day Years Used Date Smoking Tobacco: Never Smokeless Tobacco: Never Tobacco Cessation:Counseling Given: Not Answered Alcohol Use Standard Drinks/Week Comments Yes 0 (1 standard drink = 0.6 oz pur e alcohol) Occasionally Comments No Sex and Gender Information Value Date Recorded Sex Assigned at Not on file Legal Sex Female 2:59 PM EDITORIAL DIRECTOR Gender Identity Not on file Sexual Orientation Not on file Obstetrics History Last Filed Vital Signs Vital Sign Reading Time Taken Comments Blood Pressure 142/83 05/24/2024 10:43 AM EDITORIAL DIRECTOR Pulse 67 05/24/2024 10:43 AM EDITORIAL DIRECTOR Temperature 36.7 C (98.1 F) 05/24/2024 10:43 AM EDITORIAL DIRECTOR Respiratory Rate 16 05/24/2024 10:43 AM EDITORIAL DIRECTOR Oxygen Saturation 99% 12/04/2017 7:33 AM CDT Inhaled Oxygen Concentration - - Weight 67.3 kg (148 lb 6.4 oz) 05/24/2024 10:43 AM EDITORIAL DIRECTOR Height 175.3 cm (5' 9 ) 05/24/2024 10:43 AM EDITORIAL DIRECTOR Body Mass Index 21.91 05/24/2024 10:43 AM EDITORIAL DIRECTOR Plan of Treatment Health Maintenance Due Date Last Done Comments Breast Cancer Screening-Mammogram 1960 Cervical Cancer Screening 1960 Colon Cancer Screening-Colonoscopy 1960 Depression Screening 1960 Hepatitis C Screening 1961 DTaP/Tdap/Td Vaccine (1 - Tdap) 1972 Hepatitis B Screening 1979 Regular Well Visit/Exam 18-64 1979 Zoster Vaccine (1 of 2) 2011 Influenza Vaccine (#1) 2024 8, 04/24/2017, 04/15/2016, Additional history exists Pneumococcal vaccine <65 Aged Out No longer eligible based on patient's age to complete this topic Insurance [facility] CHOICE PLUS [place] [id number] [facility] [place] [id number] [facility] CHOICE PLUS [facility] CHOICE PLUS Care Teams Cell Installer Relationship Specialty Start Date End Date Jaylyn Ward NP [address] [place] [address] PCP - General Nurse Practitioner 04/07/24 Carmen Guy NP Registered Nurse Radiation Oncology 12/23/17 Severiano Anderson MD [address] [facility] DEPT OTOLARYNGOLOGY, [address] [address] Surgical Oncologist Otolaryngology 12/23/17
--- OUTSIDE RECORDS SUMMARY | 2024-11-13 12:06 | XMS_ITS | Clinical Summary ---
Author Organization [facility] Address [address] [place] [address] Phone Care Team Providers Care Wheel Presser Name Role Phone Unavailable Primary Care Provider Unavailabl e Allergies No known active allergies Medications levothyroxine 125 mcg tablet Take 125 mcg by mouth daily in the morning. Active zolpidem (AMBIEN) 10 mg tablet Take 10 mg by mouth nightly as needed for Insomnia. Active OTHER MVI, D3, omega 3-6-9,Airbor ne, glucosamine/ chondroitin Active citalopram (CeleXA) 10 mg tablet Take 10 mg by mouth daily. Active Active Problems No known active problems Encounters Date Type Department Care Team Description 10/12/2024 External Device Data ST[facility] ABSTRACTION Provider, Abstract 09/29/2024 External Device Data [facility] ABSTRACTION Provider, Abstract 09/20/2024 External Device Data [facility] ABSTRACTION Provider, Abstract 09/18/2024 External Device Data [facility] ABSTRACTION Provider, Abstract 09/17/2024 External Device Data [facility] ABSTRACTION Provider, Abstract 09/14/2024 External Device Data ST[facility] ABSTRACTION Provider, Abstract 09/02/2024 Results Follow-Up [facility] [address] [facility] [address] [place] [id number] Birdie Andrea, COLONOSCOPY REPORT 09/01/2024 External Device Data STL ABSTRACTION Provider, Abstract 08/31/2024 External Device Data ST[facility] ABSTRACTION Provider, Abstract 08/31/2024 External Device Data STL ABSTRACTION Provider, Abstract 08/26/2024 11:30 AM INVESTIGATIVE SHOPPER - 08/26/2024 12:00 PM INVESTIGATIVE SHOPPER Surgery [facility] GI Lab [facility] [address] [place] [address] Birdie Andrea DO COLONOSCOPY 08/26/2024 11:11 AM INVESTIGATIVE SHOPPER Anesthesia Event [facility] [address] [place] [address] Ck Colón MD 08/26/2024 10:34 AM INVESTIGATIVE SHOPPER - 08/26/2024 12:13 PM INVESTIGATIVE SHOPPER Hospital Encounter [facility] [address] [place] [place] [address] Birdie Andrea DO History of colonic polyps Discharge Disposition: Home or Self Care from Last 3 Months Family History Medical History Relation Name Comments Colon Cancer Neg Hx Social History Tobacco Use Types Packs/Day Years Used Date Smoking Tobacco: Never Smokeless Tobacco: Never Alcohol Use Standard Drinks/Week Comments Yes 1 (1 standard drink = 0.6 oz pur e alcohol) Feeling Safe Answer Date Recorded Are you in a relationship wi th someone who hurts you emotionally and/or physically? No 08/26/2024 Comments No Sex and Gender Information Value Date Recorded Sex Assigned at Not on file Legal Sex Female 10:40 AM INVESTIGATIVE SHOPPER Gender Identity Not on file Sexual Orientation Not on file Last Filed Vital Signs Vital Sign Reading Time Taken Comments Blood Pressure 101/63 08/26/2024 11:53 AM INVESTIGATIVE SHOPPER Pulse 83 08/26/2024 11:53 AM INVESTIGATIVE SHOPPER Temperature 36.4 C (97.6 F) 08/26/2024 11:33 AM INVESTIGATIVE SHOPPER Respiratory Rate 16 08/26/2024 11:53 AM INVESTIGATIVE SHOPPER Oxygen Saturation 98% 08/26/2024 11:53 AM INVESTIGATIVE SHOPPER Inhaled Oxygen Concentration - - Weight 68.3 kg (150 lb 9.6 oz) 08/26/2024 10:48 AM INVESTIGATIVE SHOPPER Height 175.3 cm (5' 9 ) 08/26/2024 10:48 AM INVESTIGATIVE SHOPPER Body Mass Index 22.24 08/26/2024 10:48 AM INVESTIGATIVE SHOPPER Plan of Treatment Health Maintenance Due Date Last Done Comments DTAP/TDAP/TD VACCINES (1 - Tdap) 1980 HPV/Cotest (21-29) 1982 CERVICAL CANCER SCREENING 1991 HPV/Cotest (30-65) 1991 PAP SMEAR 1991 FIT-DNA Q 3 years 2006 FIT/FOBT Q 1 year 2006 Flex Sig/CT Colonography Q 5 years 2006 ZOSTER VACCINE (1 of 2) 2011 BREAST CANCER SCREENING 10/08/2013 10/08/2012, 09/17 INFLUENZA VACCINE (#1) 2024 COLORECTAL SCREENING 08/26/2031 08/26/2024, 08/26/2024, 07/27/2021, Additional history exists Colorectal Cancer Screening 08/26/2031 RSV VACCINE (60+ or ) (1 - 1-dose 75+ series) 2036 Procedures Procedure Name Priority Date/Time Associated Diagnosis Comments COLONOSCOPY REPORT 08/26/2024 11 :31 AM INVESTIGATIVE SHOPPER [place] COLONOSCOPY FLX DX W/COLLJ SPEC WHEN PFRMD 08/26/2024 11:30 AM INVESTIGATIVE SHOPPER History of colonic polyps Screen for colon cancer Case Notes 2 day prep per Emre from Last 3 Months Results * COLONOSCOPY REPORT (08/26/2024 11:31 AM INVESTIGATIVE SHOPPER) Narrative Procedure Note Birdie Andrea DO - 08/26/2024 11:31 AM CST [facility] Endoscopy Patient Name: Page Del Valle Procedure Date: 08/26/2024 Date of : 1960 Attending MD: Birdie Andrea MD, Procedure: Colonoscopy Indications: High risk colon cancer surveillance: Personal history of non-advanced adenoma, Last colonoscopy: July 2021 Providers: Birdie Andrea MD Referring MD: Terri Hopkins Medicines: Monitored Anesthesia Care Complications: No immediate complications. Procedure: Informed consent was obtained for the procedure, including moderate sedation after risks were discussed. Based on the pre-procedure assessment, including review of the patient's medical history, medications, allergies, and review of systems, the patient was deemed to be an appropriate candidate for sedation. A timeout was performed. Continuous ECG monitoring, pulse oximetry, blood pressure monitoring, and direct observation were performed. The Colonoscope was introduced through the anus and advanced to the cecum, identified by appendiceal orifice and ileocecal valve. The colonoscopy was performed without difficulty. The patient tolerated the procedure well. The quality of the bowel preparation was good. Anatomical landmarks were photographed. Estimated Blood Loss: Estimated blood loss was minimal. Findings: The perianal examination was normal. Diverticula were found in the sigmoid colon and descending colon. Retroflexion in the right colon was performed. Non-bleeding hemorrhoids were found. Impression: - Diverticulosis in the sigmoid colon and in the descending colon. - Non-bleeding hemorrhoids. - No specimens collected. Recommendation: - Repeat colonoscopy in 7 years for surveillance. - High fiber diet. Birdie Andrea MD 08/26/2024 11:31:17 AM This report has been signed electronically. Number of Addenda: [address]; [place] [address] Birdie Andrea DO GI PROCEDURE ORDERABLES Fin al Result from Last 3 Months Insurance Advance Directives For more information, please contact: [phone] * Full Code (Latest Code Status on File) Date Activated Date Inactivated Comments 08/26/2024 10:50 AM 08/26/2024 2:23 PM * Full Code Date Activated Date Inactivated Comments 07/27/2021 10:03 AM 07/27/2021 1:52 PM
--- OUTSIDE RECORDS SUMMARY | 2024-11-13 12:06 | XMS_ITS | Referral Summary ---
Author Organization [facility] Address [address] [place] [address] Care Team Providers Care Manager City Name Role Phone Carmen Guy NP Unavailable Severiano Anderson MD Unavailable Jaylyn Ward DOCTOR OF AUDIOLOGY Primary Care Provider [phone] Allergies Active Allergy Reactions Criticality Noted Date [...] 1 tablet (125 mcg total) by mouth territory sales manager before breakfast 90 tablet 3 4 12/30/19 [...] 03/31/2023 Assessment & Plan (05/24/2024 1:27 PM MANAGER PROTEIN): Continue current levothyroxine dose. Will check thyroid [...] 12/03/2017 Assessment & Plan (05/24/2024 1:28 PM MANAGER PROTEIN): Thyroid function test with a TSH goal [...] work a lot, Teenage son is challenging Social History Tobacco Use Types Packs/Day Years Used Date Smoking Tobacco: Never Smokeless Tobacco: Never Tobacco Cessation:Counseling Given: Not Answered Alcohol Use Standard Drinks/Week Comments Yes 0 (1 standard drink = 0.6 oz pur e alcohol) Occasionally Comments No Sex and Gender Information Value Date Recorded Sex Assigned at Not on file Legal Sex Female 2:59 PM MANAGER PROTEIN Gender Identity Not on file Sexual Orientation Not on file Last Filed Vital Signs Vital Sign Reading Time Taken Comments Blood Pressure 142/83 05/24/2024 10:43 AM MANAGER PROTEIN Pulse 67 05/24/2024 10:43 AM MANAGER PROTEIN Temperature 36.7 C (98.1 F) 05/24/2024 10:43 AM MANAGER PROTEIN Respiratory Rate 16 05/24/2024 10:43 AM MANAGER PROTEIN Oxygen Saturation 99% 12/04/2017 7:33 AM CDT Inhaled Oxygen Concentration - - Weight 67.3 kg (148 lb 6.4 oz) 05/24/2024 10:43 AM MANAGER PROTEIN Height 175.3 cm (5' 9 ) 05/24/2024 10:43 AM MANAGER PROTEIN Body Mass Index 21.91 05/24/2024 10:43 AM MANAGER PROTEIN Plan of Treatment Not on file Insurance [facility] CHOICE PLUS [facility] H[facility]/PPO Address: [facility] [address] [place] [address] [facility] H[facility]/PPO Address: [address] [address] [place] [address] [facility] CHOICE PLUS [facility] H[facility]/PPO Address: [address] [address] [place] [address] [facility] CHOICE PLUS [facility] HMO/PPO Address: [address] [address] [place] [address] Care Teams Manager City Relationship Specialty Start Date End Date Jaylyn Ward NP [address] [place] [address] PCP - General Nurse Practitioner 04/07/24 Carmen Guy NP Registered Nurse Radiation Oncology 12/23/17 Severiano Anderson MD [address] [facility] DEPT OTOLARYNGOLOGY, [address] [address] Surgical Oncologist Otolaryngology 12/23/17
--- OUTSIDE RECORDS SUMMARY | 2024-11-13 12:06 | XMS_ITS ---
Author Organization [facility] Address [address] [place] [address] [address] [place] [address] Care Team Providers Care African Studies Professor Name Role Phone Esther Griffin PA-C Unavailable [phone] Allergies No Known Allergies REASON FOR VISIT TPI Medications Medication SIG (Take, Route, Frequency, Duration) Notes Start Date End Date Status ALPRAZolam 0.25 MG TAKE 1/2 (ONE-HALF) TABLET BY MOUTH ONCE DAILY NEEDED FOR ANXIETY Oral for 30 F418,Unavailabl e Active Citalopram Hydrobromide 10 MG TAKE 1 TABLET BY MOUTH ONCE DAILY Oral for 30 Active Zolpidem Tartrate 10 MG TAKE 1 TABLET BY MOUTH EVERY DAY AT BEDTIME NEEDED FOR INSOMNIA Oral for 30 G4700,Unavailab le Active Problems Problem Type SNOMED Code ICD Code Onset Dates Problem Status W/U Status Risk Notes Problem Cervicalgia (31163474) Cervicalgia (M54.2) Active confirmed Problem Cervical spondylosis (048255459) Cervical spondylosis (M47.812) Active confirmed Vital Signs Blood pressure systolic 118 mm Hg 06/01/20 24 Blood pressure diastolic 73 mm Hg 024 Heart Rate 80 /min 06/01/2024 Height 5ft 9in in 06/01/2024 Weight 148 lbs 06/01/2024 BMI 21.85 kg/m2 06/01/2024 Height-cm 175.26 cm 06/01/2024 Weight-kg 67.13 kg 06/01/2024 Encounters Encounter Location Date Provider Diagnosis [facility] [address] [place] [address] 06/01/2024 Esther Griffin Cervicalgia M54.2 ; Pelvic obliquity M95.5 and Cervical spondylosis M47.812 Assessments Encounter Date Diagnosis (ICD Code) Assessment Notes Treatment Notes Treatment Clinical Notes Section Notes 06/01/2024 Cervicalgia (ICD-10 - M54.2) TPI schedule xrays 06/01/2024 Pelvic obliquity (ICD-10 - M95.5) 06/01/2024 Cervical spondylosis (ICD-10 - M47.812) 06/01/2024 Other Learning About How to Have a Healthy Back material was published Plan Of Treatment Treatment Notes Assessment Notes Cervicalgia TPI schedule xrays Other Learning About How t o Have a Healthy Back material was published Next Appt Details Follow Up: 4 Weeks, Reason: Progress Notes * Page RAWLS MDOB:[birth year] (64 yo F)Acc No.[id number]:06/01/2024 Patient: Page EVERETT Appointment Provider: IVÁN Booth :1960 A ge:64 Y S ex:Female Supervising Provider:Leandro Walls MD Date:06/01/2024 Address:[address] [place], [place] [id number] Subjective: * Chief Complaints: * T PI * HPI: * Established Patient: Established Patient Questionnaire: 1 . Are you currently taking a Blood Thinner Medication? N o 2 . Do you have an allergy to I.V. Contrast or Shellfish? N o 3 . List any changes to medical history. (eg; Falls, Test, Scans, Blood Work, and Hospitalizations) N one 4 . Have you been exposed to anyone with COVID in the last 2 weeks? N o 5 . Have you been exposed to anyone with the FLU in the last 72 hours? N o 6 . What is your Pain Level today? (1-10, Scroll and select one) 9 7 . Where is your pain located? H ead,Neck,Left Shoulder,Right Shoulder,Low Back 8 . After your last visit, what Percentage of improvement did you experience? 6 0 9 . Are you doing Physical Therapy, Chiropractic, or Massage Therapy? Y es 1 0. Are you doing an at home Exercise Program? Y es 1 1. What activities or positions increase your Pain? (Scroll to select one or multiple) S itting,Standing,Exercise 1 2. What activities or positions decrease your Pain? (Scroll to select one or multiple) L radhika down,Walking 1 3. How would you describe your Pain? (Scroll to select one or multiple) A kamila 1 4. Are you having difficulty sleeping? Y es 1 5. When was the last time you had your blood drawn? (Please enter your best estimate) 1 6. When was your last Mammogram? (Please put N/A if you are male, for Females please put the best Estimate or Never. ) 1 1 7. When was your last Colonoscopy? (Please put the best Estimate or Never. ) 3 Years ago 1 8. Do you need any refills on your medications today? N o 1 9. Please list ALL changes to Medications or Allergies? C italopran 2 0. Are you Diabetic? N o 2 1. Do you suffer from Constipation? N o Procedure Consent I nformed Consent obtained on 08/01/2023 * Pain Management:: Page Rawls is here today for trigger point injections. This is my first time meeting her in clinic. She has history of chronic cervical pain, spondylosis and scoliosis. Her last visit here was May 2023. She states she had RFA procedure left C8, T1, T2. She does see chiropractor with benefit. She does HEP/stretching and uses bolster on a regular basis. Right leg a short 2 mm. She will schedule to update x-rays. Today she rates VAS 9/10. She says her pain is located head neck shoulders and low back. She reports 60% benefit from last visit. She does chiropractor and HEP. She does have some difficulty with sleep. She is on no narcotic medications. * ROS: G eneral/Constitutional: Denies Change in appetite, Chills, Fatigue, Fever or Lightheadedness. ENT: Denies Tinnitus or Dysphagia. Ophthalmologic: Denies Blurred vision or change in vision. Neurological: denies gait abnormality, balance difficulty, dizziness, or loss of strength Psychological: denies depressed mood or change in mood Skin: denies skin rash . * Medical History: * Surgical History: * Hospitalization/Major Diagno stic Procedure: * Social History: * Established Patient: S moking D o you smoke? N o * Medications: T akingCitalopram Hydrobromide 10 MG Tablet TAKE 1 TABLET BY MOUTH ONCE DAILY Oral Zolpidem Tartrate 10 MG Tablet TAKE 1 TABLET BY MOUTH EVERY DAY AT BEDTIME NEEDED FOR INSOMNIA Oral , Notes to Pharmacist: G4700,UnavailableALPRAZolam 0.25 MG Tablet TAKE 1/2 (ONE-HALF) TABLET BY MOUTH ONCE DAILY NEEDED FOR ANXIETY Oral , Notes to Pharmacist: F418,UnavailableMedication List reviewed and reconciled with the patientTaking Citalopram Hydrobromide 10 MG Tablet TAKE 1 TABLET BY MOUTH ONCE DAILY Oral Taking Zolpidem Tartrate 10 MG Tablet TAKE 1 TABLET BY MOUTH EVERY DAY AT BEDTIME NEEDED FOR INSOMNIA Oral , Notes to Pharmacist: G4700,UnavailableTaking ALPRAZolam 0.25 MG Tablet TAKE 1/2 (ONE-HALF) TABLET BY MOUTH ONCE DAILY NEEDED FOR ANXIETY Oral , Notes to Pharmacist: F418,UnavailableMedication List reviewed and reconciled with the patient * Allergies: N .K.D.A.no[Allergies Verified] Objective: * Vitals: H t: 5ft 9in, Wt:148lbs, BP:118/73mm Hg, Pain scale:91-10, HR:80/min, BMI:21.85Index, Ht-cm: 175.26 cm, Wt-k.13 kg, Body Surface Area: 1.81. * Physical Examination: P atient is A&OX3 in NAD, speech is appropriate. Gait is non-antalgic and unassisted. Lungs: respirations are non-labored. Musculoskeletal: forward head, kyphosis, lumbar lordosis. Patient transfers without difficulty.? she has pelvic obliquity with rotation in hips. Assessment: * Assessment: 1. C ervicalgia - M54.2 (Primary) 2 . P elvic obliquity - M95.5 ?3. C ervical spondylosis - M47.812 Plan: * Treatment: 2. O thers Notes: Learning About How to Have a Healthy Back material was published * Procedures: T reset merchandiser Point Injections After informed consent the patient was positioned lateral, supine, prone and sitting. Preparation was with alcohol . The trigger point was located with a 25 gauge 2 inch block needle with a dry needle technique. Negative aspiration for blood was obtained. A positive fasciculation was noted. A solution of lidocaine 0.5% 10 mL was injected without preservative, without epinephrine and without depomedrol. The following trigger points were injected: R oblique, L rhomboid, L QL, B UT, B pectoralis, B deltoid Patient tolerated procedure well. Patient was discharged stable. * Procedure Codes: * Follow Up: 4 Weeks * Billing Information: * Visit Code: 32687 Office Visit, Est Pt., Level 3. * Procedure Codes: Review Notes: Leandro Walls I 2024-07-21 09:30:54* NG WORKER Electronically co-signed by Leandro Walls MD on 07/21/2024 at 09:30 AM CASING WORKER Sign off status: Completed true * Appointment Provider: IVÁN Booth Date: 1 08/01/2023 Generated for Printing/Faxing/eTransmitting on: 0 11/13/2024 12:05 PM CDT History and Physical Notes * HPI (History of Present Illness) Category Sub-Category Detail Notes Category Not es *Pain Management: Page Rawls is here today for trigger point injections. This is my first time meeting her in clinic. She has history of chronic cervical pain, spondylosis and scoliosis. Her last visit here was May 2023. She states she had RFA procedure left C8, T1, T2. She does see chiropractor with benefit. She does HEP/stretching and uses bolster on a regular basis. Right leg a short 2 mm. She will schedule to update x-rays. Today she rates VAS 9/10. She says her pain is located head neck shoulders and low back. She reports 60% benefit from last visit. She does chiropractor and HEP. She does have some difficulty with sleep. She is on no narcotic medications. *Established Patient Established Patient Questionnaire: 1. Are you currently taking a Blood Thinner Medication?: No 2. Do you have an allergy to I.V. Contra st or Shellfish?: No 3. List any changes to medic al history. (eg; Falls, Test, Scans, Blood Work, and Hospitalizations): None 4. Have you been exposed to anyone with COVID in the last 2 weeks?: No 5. Have you been exposed to anyone with the FLU in the last 72 hours?: No 6. What is your Pain Level today? (1-10, Scroll and select one): 9 7. Where is your pain locate d?: Head,Neck,Left Shoulder,Right Shoulder,Low Back 8. After your last visit, wh at Percentage of improvement did you experience?: 60 9. Are you doing Physical Therapy, Chiro practic, or Massage Therapy?: Yes 10. Are you doing an at home Exercise Pr ogram?: Yes 11. What activities or posit ions increase your Pain? (Scroll to select one or multiple): Sitting,Standing,Exercise 12. What activities or posit ions decrease your Pain? (Scroll to select one or multiple): Lying down,Walking 13. How would you describe y our Pain? (Scroll to select one or multiple): Aching 14. Are you having difficulty sleeping?: Yes 15. When was the last time y ou had your blood drawn? (Please enter your best estimate): 16. When was your last Mammo gram? (Please put N/A if you are male, for Females please put the best Estimate or Never. ): 05-06-2024 17. When was your last Colon oscopy? (Please put the best Estimate or Never. ): 3 Years ago 18. Do you need any refills on your medi cations today?: No 19. Please list ALL changes to Medicatio ns or Allergies?: Citalopran 20. Are you Diabetic?: No 21. Do you suffer from Constipation?: No Procedure Consent Informed Consent obtained on: 06/01/2024 Physical Examination Category Sub-Category Detail Notes Section Note s Patient is A&OX3 in NAD, speech is appropriate. Gait is non-antalgic and unassisted. Lungs: respirations are non-labored. Musculoskeletal: forward head, kyphosis, lumbar lordosis. Patient transfers without difficulty. she has pelvic obliquity with rotation in hips.
--- OUTSIDE RECORDS SUMMARY | 2024-11-13 12:06 | XMS_ITS ---
Author Organization [facility] Address [address] [place] [address] [address] [place] [address] Care Team Providers Care Spa Supervisor Name Role Phone Verónica Walls Unavailable [phone] Encounters Encounter Location Date Provider Diagnosis [facility] [address] [address] [place] [address] 05/15/2023 Verónica Walls Plan Of Treatment No Information Progress Notes * Page RAWLS MDOB:[birth year] (64 yo F)Acc No.[id number]:05/15/2023 Progress Notes Patient: Baylee Page PARKINSON Provider: Baylee Walls MD :1960 A ge:63 Y S ex:Female Date:05/15/2023 Address:[address] [place], [place] [id number] Subjective: * Chief Complaints: * * Medical History: Objective: * Vitals: Assessment: Plan: * Treatment: * Billing Information: * Visit Code: * Procedure Codes: * Electronic signature of Ernestina Walls MD on 11/13/2024 at 12:06 PM CDT Sign off status: Pending * Provider: Baylee Walls MD Date: 07/15/2022 Generated for Diaz lamar/Kiesha/eTayaansmitting on: 11/13/2024 12:06 PM CDT
--- OUTSIDE RECORDS SUMMARY | 2024-11-13 12:06 | XMS_ITS ---
Author Organization [facility] Address [address] [place] [address] Care Team Providers Care Monkey Trainer Name Role Phone Carmen Guy NP Unavailable [phone] Severiano Anderson MD Unavailable [phone] Jaylyn Ward TIMBER ROBBER Primary Care Provider [phone] Active Problems Problem Noted Date Diagnosed Date Lung nodule 11/04/2023 Assessment & Plan (11/04/2023 8:37 PM CDT): Discussed options to follow up with CT chest in 6 months If concern for papillary thyroid cancer mets , will scheduled WBS for evaluation pending biochemical testing Patient agrees Post-surgical hypothyroidism 03/31/2023 Assessment & Plan (05/24/2024 1:27 PM LASER MACHINE OPERATOR): Continue current levothyroxine dose. Will check thyroid [...] 12/03/2017 Assessment & Plan (05/24/2024 1:28 PM LASER MACHINE OPERATOR): Thyroid function test with a TSH goal [...] work a lot, Teenage son is challenging Current Treatment and Therapy Plans No current plan information found. Past Treatment and Therapy Plans No past plan information found. Radiation Treatments * Course Thyroid 3 08/31/2019 - 08/31/2019 Treatment Period Energy Fraction Dose Fractions Total Dose Plans Planned Thyroid 3 08/31/2019 - 08/31/2019 150 1 / 150 Reference Points Delivered Thyroid 3 08/31/2019 - 08/31/2019 150 * Course Thyroid 2 02/16/2019 - 02/16/2019 Treatment Period Energy Fraction Dose Fractions Total Dose Plans Planned i131 2 02/16/2019 - 02/16/2019 150 1 / 150 Reference Points Delivered i131 2 02/16/2019 - 02/16/2019 150 Lifetime Dose Tracking * Chemical Lifetime Dose Automatic Entry Manual Entr y DLP 528 mGycm 528 mGycm 0 mGycm Treatment Summaries Thyroid cancer (HCC)* Images from the original note were not included. [facility] [address] [place], [place] [id number] This Survivorship Care Plan is a cancer treatment summary and follow-up plan and is provided to youto keep with your health care records and to share with your primary care provider or any of your doctors and nurses. This summary is a brief record of major aspects of your cancer treatment not a detailed or comprehensive record of your care. You should review this with your cancer provider. Treatment Summary and Survivorship Care Plan for Thyroid Cancer Provided by Carmen Guy NP on 06/30/18 General Information Patient name Page Del Valle (home) [phone] (work) Date of 1960 Health Care Providers (Including Names, Institutions) Provider Name: Contact Information: Primary Care Physician Juventino Villa MD [phone] Surgeon Severiano Anderson Radiation Oncologist Joseph Burch MD [phone] Medical Oncologist No care boilermaker central steam plant to display [facility] No care boilermaker central steam plant to display Other Providers Treatment Summary Cancer Diagnosis Information Diagnosis Thyroid cancer (CMS/HCC) Diagnosis date 12/19/2017 Staging information Cancer Staging Thyroid cancer (CMS/HCC) Staging form: Thyroid - Differentiated, AJCC 8th Edition - Pathologic stage from 12/03/2017: pT1a, pN1a, Age at diagnosis: >= 55 years - Signed by Gage Arita MD on 12/19/2017 Family History Cancer Cancer-related family history includes Breast cancer in her maternal grandmother and mother. Treatment Completed Surgery Surgery date Thyroidectomy 12/03/17 Surgical procedure / location / findings Papillary thyroid carcinoma Radiation Radiation Treatments Patient's record has no active or historical radiation treatments documented. Radioactive iodine 30mCi on 12/23/17 Systemic Therapy (chemotherapy, hormonal therapy, other) [No treatment plan] Lifetime Dose Tracking Lifetime Dose Tracking: No doses have been documented on this patient for the following tracked chemicals: doxorubicin, epirubicin, idarubicin, daunorubicin, mitoxantrone, bleomycin, mitomycin, cyclophosphamide, carmustine,ifosfamide, etoposide, doxorubicin HCl pegylated liposomal, etoposide phosphate, valrubicin, doxorub icin isotoxic equivalent Research Studies No available studies Treatment Ongoing: No, not at this time Persistent symptoms or side effects that have continued after finishing treatment: None Follow-up Care Plan Your follow-up care plan is design to inform you and primary care providers regarding the recommended and required follow-up, cancer screening and routine health maintenance that is needed to maintain optimal health. Coordinating Provider When/How often Joseph Burch MD History & Physical exam yearly Cancer Surveillance or other Recommended Tests Coordinating Provider Test How Often Joseph Burch MD TSH, Free T4, Thyroglobulin Yearly No care boilermaker central steam plant to display Neck ultrasound as needed Possible late- and long-term effects that someone with this type of cancer and treatment may experience: ??? Osteoporosis ??? Sensitivity to cold ??? Dry mouth ??? Muscle weakness ??? Decreased saliva production ??? Muscle aches ??? Voice difficulties ??? Thinning hair ??? Swallowing difficulties ??? Depression ??? Fatigue ??? Impaired memory ??? Sleep disturbances Fatigue Many patients experience some level of fatigue. Some patients experience severe and ongoing fatigue. An active lifestyle with healthy sleep patterns can improve your energy levels. Talk to your provider about ongoing (more than 3 months) fatigue. Please continue to see your primary care provider for all general health care recommended for a person your age, including cancer-screening tests. Any symptoms should be brought to the attention of your provider: 1. Anything that represents a brand new symptom; 2. Anything that represents a persistent symptom; 3. Anything you are worried about that might be related to the cancer coming back. Cancer survivors may experience issues with the areas listed below. If you have any concerns in these or other areas, please speak with your doctors or nurses to find out how you can get help with them. ?? Anxiety and depression ?? Emotional and mental health ?? Fatigue ?? Fertility ?? Financial advice or assistance ?? Insurance ?? Memory or concentration loss ?? Parenting ?? Physical functioning ?? School/work ?? Sexual functioning ?? Stopping smoking ?? Weight changes ?? Other A number of lifestyle/behaviors can affect your ongoing health, including the risk for the cancer coming back or developing another cancer. Discuss these recommendations with your doctor or nurse: 1. Eat a healthy diet: focus on lean meats and proteins, more fruits, vegetables and whole grains and low in sugars and fats. Limit red meat and avoid processed meat. 2. Maintain a healthy weight; avoid being overweight. Aim for a normal body mass index (BMI) of 18.5-24.9. Help learning to eat healthier, call the nursing agency manager at: [facility] [phone]. 3. Have an active lifestyle, strive for 30 minutes of moderate exercise 5 times a week and strengthor resistance training at least twice a week. 4. Use broad-spectrum (UVA+UVB) sunscreen with SPF 30 or greater, is water resistant, limit time spent in the sun (10 am-4pm), wear hat, wear UV protective clothing, wear sunglasses. Never use a tanning bed. Skin that was irradiated may be more sensitive over your lifetime. 5. Do not smoke or chew tobacco; participate in a smoking cessation program. 6. Limit alcohol intake, 1 drink per day for a woman and 2 drinks per day for a man. Resources you may be interested in: ?? [facility] A National Cancer [place] [facility] http://www.[facility]/ [facility] 1st floor of [facility] [phone]. Computer access, educational material, counseling services (FREE) ?? Cancer Resources: www.cancer.net ?? Thyroid Cancer Survivors Association[employer] Inc[employer] http://thyca.org ?? [employer]: https://survivorship.cancer.gov/ an online tool for cancer survivors and caregivers created by the [place] [employer] and the National Cancer [place]. It provides: ?? Information on dealing with side effects from cancer and treatment ?? Caregivers with support and resources ?? Practical advice about talking to friends and family about cancer ?? Questions to ask their health care team Other comments:
--- OUTSIDE RECORDS SUMMARY | 2024-11-13 12:06 | XMS_ITS | Patient Health Record ---
Author Organization [facility] Address [address] [place] [address] [address] [place] [address] Care Team Providers Care Muck Operator Name Role Phone Esther Griffin PA-C Unavailable [phone] Allergies No Known Allergies Reason For Referral No Information Medications Medication SIG (Take, Route, Frequency, Duration) [...] Status W/U Status Risk Notes Problem Cervicalgia (05816808) Cervicalgia (M54.2) Active confirmed Problem Cervical spondylosis (395380063) Cervical spondylosis (M47.812) Active confirmed Vital Signs Heart Rate 80 /min 06/01/2024 Height-cm 175.26 cm 06/01/2024 Blood pressure diastolic 73 mm Hg 06/01/2024 Weight-kg 67.13 kg 06/01/2024 Height 5ft 9in in 06/01/2024 Blood pressure systolic 118 mm Hg 06/01/2024 Weight 148 lbs 06/01/2024 BMI 21.85 kg/m2 06/01/2024 Encounters Encounter Location Date Provider Diagnosis [facility] [address] [facility] [address] [place] [address] 06/01/2024 Esther Griffin Cervicalgia M54.2 ; Pelvic [...] Back material was published Plan Of Treatment No Information Insurance Providers Payer Name Payer Address Payer Phone Subscriber Number Group Number Insured Name Patient Relationship to Insured Coverage Start Date Coverage End Date [facility] [address] [address] [place] [address] [id number] Balaji Del Valle Spouse - patient is the spouse of the insured 3
--- OUTSIDE RECORDS SUMMARY | 2024-11-13 12:06 | XMS_ITS | Data Portability ---
Author Organization [place] [facility], Main Office Address [address] [place] [address] Assessment No assessment recorded. Plan of Treatment Reminders Order Date Submit Date Provider Last Modified By Organization Details Last Modified Time Details Appointments None recorded. Lab vitamin D, 25-hydroxy, total, serum [address], [address] [place] [address], [address] [place] [address], [address], 3 13:14:26 phosphorus, serum or plasma [address], [address] [place] [address] Rd, [address] [place] [address], [address], 3 13:14:26 PTH (parathyroi d hormone), intact + calcium, serum or plasma [address], [address] [place] [address] Rd, [address] [place] [address], [address], 3 13:14:26 CMP, serum or plasma 2022 023 [facility], [address] [place] [address] Rd, [address] [place] [address], [address], 3 11:46:09 TSH + free T4, serum [address], [address] [place] [address], [address] [place] [address], [address], 3 13:14:26 thyroglobul in + thyroglobul in Ab, serum [address], [address] [place] [address], [address] [place] [address], [address], 3 13:14:26 Referral endocrinolo gy referral - patient had previous thyroid cancer thyroidecto my completed at [facility] 2022 023 [facility] Yana Aden MD, [address] [facility], [place], [address], 3 13:32:40 Procedures None recorded. Surgeries None recorded. Imaging [place], [facility]23 [facility] - [facility], [address] [facility], [place], [address], 3 13:32:40 Medication Orders None recorded. Patient TargetsNo targets recorded. Patient InstructionsNo instructions recorded. Reason for Referral Endocrinology Referral for H istory of malignant neoplasm of thyroid patient had previous thyroid cancer thyroidectomy completed at [facility] Referring Physician: Mesha Abraham, Endocrinology, Encounter Date: 11/25/2022 Results Created Date Observation Date Name Description Value Unit Range Abnormal Flag Note LastModifiedBy Organization Detail LastModifiedTime 06/05/20 22 06/05/2022 US, thyro id No observ ation record ed. [id number], [place], [address], 09/12/2022 00:01:50 Result Notes None recorded. Problems Name Problem SNOMED Code Status Onset Date Resolution Date Notes Provider Name and Address Organization Details Recorded Time Hypothyroidism 31878975 Active 2021 Not Available [facility] 3 23:59:41 Postoperative hypothyroidism 44814646 Active 2022 Mesha Abraham MD [address], [address], [place], [address] , [facility] 3 13:00:51 Primary hyperparathyro idism 33466198 Active 2022 Mesha Abraham MD [address], [place], [address] , [facility] 3 13:12:55 Problem Notes None recorded. Procedures Surgical History Date Name Laterality Status Provider Name and Address Organization Details Recorded Time thyroidectomy completed Not Available [facility] 09/11/2022 23:57:45 parathyroidectomy completed Not Available [facility] 09/11/2022 23:57:45 Hernia Repair completed Not Available [facility] 09/11/2022 23:57:45 augmentation of bilateral breasts completed Not Available [facility] 09/11/2022 23:57:45 Imaging Results Imaging Date Name Status LastModified by Organiz ation Details LastModified Time 06/05/2022 US, thyroid completed [id number] 026 [facility] [address], [place], [address], 09/12/2022 00:01:50 Procedure Notes None recorded. Medical Equipment None Reported. Allergies No known drug allergies Medications Name Sig Start Date Stop Date Status Note LastModified by Organization Details LastModified Time amoxicillin 500 mg capsule TAKE 1 CAPSULE BY MOUTH THREE TIMES DAILY FOR 7 DAYS 11/25 completed Not Available Not Available Not Available citalopram 10 mg tablet TAKE 1 TABLET BY MOUTH ONCE DAILY active Not Available Not Available No t Available Synthroid 125 mcg tablet Take 1 tablet every day by oral route in the morning for 90 days. 2022 active Not Available Not Available Not Avai lable prednisone 20 mg tablet TAKE 1 TABLET BY MOUTH THREE TIMES DAILY FOR 5 DAYS 11/25 completed Not Available Not Available Not Available ondansetron 8 mg disintegrat ing tablet DISSOLVE 1 TABLET IN MOUTH EVERY 6 TO 8 HOURS NEEDED FOR NAUSEA 11/25 completed Not Available Not Available Not Available levothyroxi ne 25 mcg tablet Take 1 tablet every day by oral route. 05/27 completed Not Available Not Available Not Available cefadroxil 500 mg capsule TAKE 1 CAPSULE BY MOUTH THE NIGHT BEFORE SURGERY, THEN TAKE 1 CAPSULE TWICE DAILY 11/25 completed Not Available Not Available Not Available oxycodone-a cetaminophe n 5 mg-325 mg tablet TAKE 1 TABLET BY MOUTH EVERY 4 HOURS NEEDED FOR PAIN active Not Available Not Available No t Available alprazolam 0.25 mg tablet Take 1 tablet every day by oral route. 2021 active Not Available Not Available Not Avai lable triamcinolo ne acetonide 55 mcg nasal spray aerosol [place] 1 spray every day by intranasa l route. 11/25 completed Not Available Not Available Not Available mupirocin 2 % topical ointment APPLY OINTMENT DAILY AT BEDTIME INSIDE NARES STARTING 5 DAYS PRIOR TO SURGERY 11/25 completed Not Available Not Available Not Available zolpidem 10 mg tablet TAKE 1/2 TO 1 (ONE-HALF TO ONE) TABLET BY MOUTH AT BEDTIME NEEDED FOR SLEEP active Not Available Not Available No t Available diazepam 5 mg tablet TAKE 1 TABLET BY MOUTH 1 HOUR PRIOR TO PROCEDURE , THEN TAKE 1 TABLET BY MOUTH THREE TIMES DAILY NEEDED 11/25 completed Not Available Not Available Not Available multivitami n 1 TABLET PO DAILY 2021 active Not Available Not Available Not Avai lable vitamin E succinate 67 mg (100 unit) tablet Take 100 units every day by oral route. 11/25 completed Not Available Not Available Not Available ID NOW COVID-19 Test Kit TEST DIRECTED TODAY 05/27 completed Not Available Not Available Not Available BinaxNOW COVID-19 Ag Self Test kit Use as Directed on the Package 11/25 completed Not Available Not Available Not Available Paxlovid 300 mg (150 mg x 2)-100 mg tablets in a dose pack TAKE 3 TABLETS TOGETHER (TWO 150 MG NIRMATREL VIR TABLETS AND ONE 100 MG RITONAVIR TABLET) BY MOUTH TWICE DAILY FOR 5 DAYS. 05/27 completed Not Available Not Available Not Available Vitals Date Recorded Heart rate Body temperature Body weight Systolic blood pressure Diastolic blood pressure Provider Name and Address Organization Details Last Updated DateTime 2 80 /min 97.2 [degF] 88031.7 6 g 140 mm[Hg] 90 mm[Hg] Not Available [facility] 3 23:58:59 Date Recorded Body weight Body temperature Heart rate Systolic blood pressure Diastolic blood pressure Provider Name and Address Organization Details Last Updated DateTime 11/25/2022 96695.8 6 g 97.8 [degF] 65 /min 165 mm[Hg] 96 mm[Hg] AGUSTIN Lawrence [place] [facility] [place] [facility] 3 12:28:31 Social History Question Answer Notes LastModified by Organization Details LastModified Time Tobacco Smoking Status Never Smoker Not Available [facility] 09/11/2022 23:57:27 What Is Your Level Of Alcohol Consumption? Occasional [id number] Information not available 09/11/2022 How Many Years Have You Consumed Alcohol? 40 [id number].030 [id number] Information not available 09/11/2022 What Is Your Level Of Caffeine Consumption? Occasional [id number].030 [id number] Information not available 09/11/2022 In The 14 Days Before Symptom Onset, Have You Had Close Contact With A Laboratory-confi rmed COVID-19 While That Case Was Ill? No MIGRATION.030 [id number] Information not available 09/11/2022 In The 14 Days Before Symptom Onset, Have You Had Close Contact With A Person Who Is Under Investigation For COVID-19 While That Person Was Ill? No [id number].[id number] [id number] Information not available 09/11/2022 What Type Of Diet Are You Following? REGULAR Well Balanced MIGRATION.030 [id number] Information not available 09/11/2022 Are There Any Guns Present In Your Home? Yes [id number].[id number] [id number] Information not available 09/11/2022 Where Do You Live? [facility] MIGRATION.0301 [id number] Information not available 09/11/2022 Have You Ever Been Counseled For Unhealthy Alcohol Use? No [id number].[id number] [id number] Information not available 09/11/2022 What Is Your Relationship Status? [id number].0301 [id number] Information not available 09/11/2022 Do You Have Smoke And Carbon Monoxide Detectors In Your Home? Yes MIGRATION.0301 [id number] Information not available 09/11/2022 Are You Passively Exposed To Smoke? No MIGRATION.0301 [id number] Information not available 09/11/2022 Do You Feel Stressed (tense, Restless, Nervous, Or Anxious, Or Unable To Sleep At Night)? [id number] MIGRATION.0301 [id number] Information not available 09/11/2022 Do You Use Any Illicit Or Recreational Drugs? No MIGRATION.0301 [id number] Information not available 09/11/2022 Do You Use Sunscreen Routinely? Yes MIGRATION.0301 [id number] Information not available 09/11/2022 Have You Recently Traveled Abroad? No MIGRATION.0301 [id number] Information not available 09/11/2022 How Many Days In The Past Year Have You Consumed 4 Or More Drinks? 5 MIGRATION.0301 [id number] Information not available 09/11/2022 Sex: Female Functional Status Question Answer Note LastModified by Organizat ion Details LastModified Time What is your exercise level? Occasional [id number] Information not available 09/11/2022 Mental Status None recorded. Family History Relationship Description Onset Age of this Age Resolved Age Notes LastModified by Organization Details LastModified Time Mother Malignant tumor of breast [id number] Not available 09/11/2022 23:57:49 Mother Heart disease [id number] Not available 09/11/2022 23:57:49 Medical History Condition Response BLINDNESS N RHEUMATIC FEVER N MRSA N INFECTIOUS DISEASE N LUNG DISEASE/DISORDER N HEART ARRHYTHMIA N INSOMNIA Y HISTORY OF DRUG ABUSE N RADIATION / CHEMOTHERAPY Y COPD N HIGH CHOLESTEROL / HYPERLIPIDEMIA N HYPERTHYROIDISM Y EYE PROBLEMS N BLOOD DISEASES N SURGERY Y EDEMA N HYPOTHYROIDISM N SHINGLES N DEPRESSION (INCLUDING POST ) Y HAVE YOU BEEN HOSPITALIZED OR SEEN IN [facility] IN THE PAST YEAR ? N STROKE/TIA N THYROID DISEASE Y BENIGN PROSTATIC HYPERPLASIA N OBESITY N GERD/NAUSEA N EXCESSIVE PERSPIRATION N ANEURYSM N OSTEOPOROSIS N ARTHRITIS Y USE OF BLOOD THINNERS N NO SIGNIFICANT PAST MEDICAL HISTORY Y SKIN PROBLEMS N DIABETES, TYPE N PARATHYROID DISEASE Y BLOOD CLOTS N HEPATITIS / LIVER DISEASE N GOUT N ALZHEIMER'S DISEASE N HERPES N RETINOPATHY N SEIZURES/EPILEPSY N HEADACHES/MIGRAINES N GI PROBLEMS N Low Testosterone N DIZZINESS N KIDNEY DISEASE N HEART DISEASE/HEART PROBLEMS N AIDS/HIV N LIVER DISEASE N HYPERTENSION N CANCER: SPECIFY Y TOURETTE'S N BLOOD TRANSFUSION N ANEMIA/BLOOD DISORDER N ATRIAL FIBRILLATION N AUTOIMMUNE DISEASE N TUBERCULOSIS N GLAUCOMA N Gynecological HistoryNo gynecological history recorded. Obstetrics History GPAL:G 0 P 0 0 0 0 Past Encounters Encounter ID Performer Location Encounter Start Date Encounter Closed Date Diagnosis/Indication Diagnosis SNOMED-CT Code Diagnosis ICD10 Code Diagnosis Note [id number] MD STACEY [facility] [address] [place] [address] 05/27/2022 00:00:00 05/27/2022 13:15:51 [id number] MD MARGO [facility] [address] [place] [address] 11/25/2022 12:09:11 11/25/2022 13:32:39 Postoperative hypothyroidism 73277696 E89.0 Send for repeat TG panel as her panel was negative from 06/04- her thyroid u/s from 06/04 was normal with no evidence of thyroid tissue. continue synthroid 125 mcg daily- goal 0.1 up to 0.5 uIU/ml to maintain adequate pituitary suppressio n. History of malignant neoplasm of thyroid 229549841 Z85.850 provided informatio n to [facility] endocrinol ogmayito as we have not received records from [facility] we do have [facility] [place] to review- her most recent scan was negative from January 2021 but due to her recurrence in 2019 recommende d she repeat another whole body scan to assure there are no further evidence of uptake or recurrent disease. refer to [facility] as she is a previous pt and we do not have the capacity to complete the whole body scan images in [place] [facility]. She is aware. Primary hyperparathyroidism 78096564 E21.0 send for parathyroi d panel to assess need to continue on calcium or vitamin d therapy. Spent up to 28 minutes preparing to see the patient (eg, review of tests), obtaining and/or reviewing separately obtained history, performing a medically appropriat e examinatio n and evaluation , counseling and educating the patient, ordering medication s, tests, along with documentin g clinical informatio n in the electronic health record, independen tly interpreti ng results and communicat ing results to the patient. RTC in 6 months. Patient was provided a handwritte n lab order which contains our fax number. If she chooses to go outside of the [facility] to obtain labwork she was advised to provide our fax number and my informatio n to the lab she will be obtaining labwork from in order to have her labs properly forwarded over for me to review so there is no loss of follow up due to use of outside network. She was also advised to contact our clinic informing us that she has completed her labwork so we are aware we will need to reach out to the appropriat e laboratory to request her results be forwarded to us so I might have the ability to review and make further medical decision making in her case. She voiced understand ing. Health Concerns Section Related Observation LastModified by Organization Detai ls LastModified Time None Recorded Concern Status LastModified by Organization Details LastModified Time None Recorded Advance Directives Directive None Recorded Payers Encounter Date Sequence Insurance Name Policy Number Policy Georges Covered Member ID Georges Member ID Guarantor Name 11/25/2022 1 [facility] [id number] Balaji Del Valle [id number] Page Del Valle Notes Date Note Type Note Provider Name and Address Organization Details Recorded Time 11/25/2022 text/html 62 yo female com es in for follow up in management of postoperative hypothyroidism we continued synthroid 125 mcg daily (bone density ordered and not done yet) patient was diagnosed originally at [facility] in 2016- per patient she has had to have two PATHAK ablation therapies and last whole body scan in 2019 time frame- [facility]. [facility] [place], [place] but no records from [facility]. 09/24/2017 : had biopsy of left superior lobe nodule12/03/17: total thyroidectomy with left parathyoid adenoma removalDx with [id number] papillary thyroid ca12/23/2017 received 30 mCI PATHAK ablation01/05/2019: WBS normal but TG was high02/19/2019: scan revealed recurrent dx and dx in anterior mediastinum08/31/2019 : received 150 mCI of RA09/03/2019: WBS revealed residual disease and focal liver lesionwent to cancer care for second opinion as [facility] recommended repeat ablation therapy in : liver mri revealed liver cyst last WBS was normal from February 07/2021 she has no concerns other than maintaining her thyroid cancer care and anxiety labs from 06/05/22:TG negFT3 of 3.6 pg/mlTSH <0.015 uIU/mlFT4 of 1.85 ng/dLglucose 107 mg/dLcr normallft normal thyroid u/s from 06/04:no thyroid tissue or lymphadenopathy Mesha Abraham MD [address] [facility], [facility] [address], [place], [address], [place] [facility] 11/25/2022 15:48:16 OBGyn Episode No OBEpisode recorded.
== END 2024-11-12 10:49 | disposition home or self-care (01) ==
PROVIDERS: PCP Family Medicine; Visit Provider Family Medicine
DX: R73.9 Hyperglycemia, unspecified (principal); E78.5 Hyperlipidemia, unspecified; E03.9 Hypothyroidism, unspecified; Z00.00 Encounter for general adult medical examination without abnormal findings; I10 Essential (primary) hypertension; E53.8 Deficiency of other specified B group vitamins; E55.9 Vitamin D deficiency, unspecified
CPT/HCPCS: 36415; 80053; 80061; 82306; 82607; 83036; 84439; 84443; 84480; 85025

== ENCOUNTER 2025-03-23 15:33 | Outpatient (CLI) | payer OTHER, SELFPAY ==
--- NOTE | ~2025-03-23 | XR_ITS ---
XR cervical spine 4-5V Indication: Cervicalgia,neck pain x 2 years, hx of thyroid cancer Comparison: None Findings: Grade 1 anterolisthesis C4 on C5, no fracture identified. Moderate loss of disc height C4-5 and C5-6, no subluxation flexion-extension Soft tissues unremarkable Impression: No acute abnormality. Reviewed, dictated and finalized at location A. Impression: No acute abnormality.
== END 2025-03-23 15:34 | disposition home or self-care (01) ==
LOC: GOSHIMG 15:34
PROVIDERS: PCP Family Medicine; Visit Provider Family Medicine
DX: M54.2 Cervicalgia (principal); G89.29 Other chronic pain
CPT/HCPCS: 72050

== ENCOUNTER 2025-06-20 13:14 | Outpatient (CLI) | payer OTHER, SELFPAY ==
--- NOTE | ~2025-06-20 | MM_ITS ---
EXAMINATION: MM screening mammography implant BI w [facility] HISTORY: Screening. TECHNIQUE: Craniocaudal and mediolateral oblique 3-D tomosynthesis images were obtained and synthetic 2-D images were generated. CAD analysis was submitted and interpreted. COMPARISON: 2023, 2022, and 2021. BREAST PARENCHYMAL COMPOSITION: Dense: The breasts are heterogeneously dense FINDINGS: There is/are prepectoral saline implants. The presence of implants decreases the sensitivity of mammography. No suspicious masses are seen. There are no suspicious calcifications. No unexplained architectural distortion is seen. There are no skin or nipple abnormalities identified. There is no adenopathy seen on the images submitted. IMPRESSION: No mammographic evidence to suggest malignancy is seen. The patient may return to screening mammography as per ACR guidelines. BI-RADS 1 - Negative. Reviewed, dictated and finalized at location C. CHER
== END 2025-06-20 13:15 | disposition home or self-care (01) ==
PROVIDERS: PCP Family Medicine; Visit Provider Family Medicine
DX: Z12.31 Encounter for screening mammogram for malignant neoplasm of breast (principal)
CPT/HCPCS: 77063; 77067